=== PATIENT | female | born 1950 | race Caucasian/White ===

== ENCOUNTER → 2017-11-24 18:01 | Outpatient (CLI) | payer MEDICARE, OTHER ==
[2013-01-15 13:14] VITALS: BMI 28.2
== END | disposition home or self-care (01) ==
LOC: D.MAMMO 10-04 08:00
DX: Z12.31 Encounter for screening mammogram for malignant neoplasm of breast (principal)

== ENCOUNTER → 2019-01-23 16:53 | Outpatient (CLI) | payer MEDICARE, OTHER ==
[2013-01-15 13:14] VITALS: BMI 28.2
== END | disposition home or self-care (01) ==
LOC: D.MAMMO 01-02 16:00
PROVIDERS: ATTEND Family Medicine
DX: Z12.31 Encounter for screening mammogram for malignant neoplasm of breast (principal)

== ENCOUNTER 2021-01-22 11:30 | Outpatient (CLI) | payer MEDICARE, OTHER ==
[2013-01-15 13:14] VITALS: BMI 28.2
== END 2021-01-22 23:59 | disposition home or self-care (01) ==
LOC: D.MAMMO 11:30
PROVIDERS: ATTEND Nurse Practitioner
DX: Z12.31 Encounter for screening mammogram for malignant neoplasm of breast (principal)

== ENCOUNTER → 2021-02-16 10:26 | Outpatient (CLI) | payer MEDICARE, OTHER ==
[2013-01-15 13:14] VITALS: BMI 28.2
== END | disposition home or self-care (01) ==
LOC: D.HCCARDIO 10:00
PROVIDERS: ATTEND Internal Medicine Cardiovascular Disease
DX: I48.0 Paroxysmal atrial fibrillation (principal)

== ENCOUNTER 2021-02-24 06:36 | Day surgery (SDC) | payer MEDICARE, OTHER ==
[~2021-02-24] VITALS: Ht 170.2 cm; Wt 73.3 kg
--- NOTE | ~2021-02-24 | HEMODYNAMI ---
PATIENT:NANCY COLON MEDICAL RECORD: [id number] : 46 LOCATION:D.CAT ADMISSION DATE: 02/24/21 Generatedon::47 Patient name: NANCY COLON Patient #: [id number] SSN: [id number] : 1950 Date of study: 02/24/2021 Page: Of Hemodynamic Procedure Report Patient Data Patient Demographics Procedure consent was obtained First Name: NANCY Gender: Female Last Name: DARLENE : 1950 Middle Initial: CARL Age: 70 year(s) Patient #: [id number] Race: Unknown SSN: [id number] Additional ID: [id number] Contact details [address]: [address] [place] [address] State: [place] City: [place] Zip code: [address] Past Medical History Performed procedures and imaging results Date Procedure Procedure Results Comments Stress testing Positive->Intermediate with SPECT MPI risk Allergies Allergen Reaction Date Comments Reported Other allergy 02/24/2021 VALIUM Admission Admission Data Admission Date: 02/24/2021 Admission Time: 6:36 Insurance Payor: Medicare [facility] #: [id number] Height (in.): 66.93 BSA: 1.84 (m2) Height (cm.): 170 BMI: 25.26 (kg/m2) Weight (lbs.): 160.94 Weight (kg.): 73 Lab Results Lab Result Date: 02/24/2021 Lab Result Time: 0:00 Biochemistry Name Units Result Min Max BUN mg/dl 20 --(----)*- 7 18 Creatinine mg/dl 0.8 --(-*--)-- 0.6 1.3 eGFR ml/min 75 *-(----)-- 90 120 NONAFRICAN CBC Name Units Result Min Max Hemoglobin g/dl 14.3 --(*---)-- 13.5 17.5 Procedure Procedure Types Cath Procedure Diagnostic Procedure LHC LHC w/Coronaries FFR/IVUS FFR Initial FFR Additional Sedation Charges Moderate Sedation 40-54 minutes PCI Procedure Hemochron ACT Test Procedure Description Procedure Date Procedure Date: 02/24/2021 Procedure Start Time: 8:05 Procedure End Time: 8:42 Procedure Staff Name Function Shad Olsen MD Performing Physician Lo Dodd RT Monitor Mellshar Rosa RT Scrub David Lal RN Nurse Roman Clay RN Nurse Procedure Data Cath Procedure Fluoroscopy Diagnostic fluoroscopy Total fluoroscopy Time: 9.3 time: 9.3 min min Diagnostic fluoroscopy Total fluoroscopy dose: 680 dose: 680 mGy mGy Contrast Material Contrast Material Type Amount (ml) Isovue 300 148 Entry Location Entry Primary Successful Side Size Upsize Upsize Entry Closure Succes sful Closure Location (Fr) 1 (Fr) 2 (Fr) Remarks Device Remarks Femoral Right 5 Fr Exoseal artery Estimated blood loss: 10 ml Diagnostic catheters Device Type Used For End Catheter Placement MULTIPACK 3DRC 5Fr Procedure catheter MULTIPACK JL 4.0 5Fr Procedure catheter MULTIPACK Pigtail 5 Fr Ventriculography catheter Procedure Complications No complications Procedure Medications Medication Administration Route Dosage 0.9% NaCl I.V. 100 ml/hr Oxygen etCO2 Nasal cannula 2 l/min Heparin Flush Bag added to field 2 bags (1000units/500ml NS) Lidocaine 2% added to field 20 Fentanyl I.V. 50 mcg Versed I.V. 1 mg Versed I.V. 0.5 mg Heparin Bolus I.V. 4000 units Hemodynamics Rest BSA: 1.84 (m2) HGB: 14.3 (g/dl) O2 Consumption: Estimated: 157.52 (ml/min) O2 Co nsumption indexed: Estimated:85.61 (ml/min/m) Heart Rate: 54 (bpm) Pressure Samples Time Site Value (mmHg) Purpose Heart Use Rate(bpm) 8:15 LV 120/-2,14 Snapshot 56 Gradients Valve Time Site Site Mean SEP/DFP Peak To Heart Use 1 2 (mmHg) (sec/min) Peak Rate (mmHg) (bpm) Aortic 8:15 LV AO 70 Snapshots Pre Cath Intra NCS Post Cath Vital Signs Time Heart Resp SPO2 etCO2 NIBP (mmHg) Rhythm Pain Sedation Rate (ipm) (%) (mmHg) Status Level (bpm) 7:52:07 53 16 100 29.9 165/71(128) SB 0 (11) 10(A) , No pain 7:57:19 57 16 100 19.4 158/69(129) SB 0 (11) 9(A) , No pain 8:02:34 51 14 99 31.4 131/61(100) SB 0 (11) 9(A) , No pain 8:06:54 51 14 99 0 124/55(90) SB 0 (11) 9(A) , No pain 8:11:12 51 14 99 35.1 121/53(91) SB 0 (11) 9(A) , No pain 8:15:30 76 13 99 29.1 115/50(98) SB 0 (11) 9(A) , No pain 8:20:29 54 15 99 37.4 117/56(103) SB 0 (11) 9(A) , No pain 8:24:43 54 16 100 33.7 111/57(92) SB 0 (11) 9(A) , No pain 8:28:58 50 15 99 32.9 110/50(91) SB 0 (11) 9(A) , No pain 8:34:13 50 18 100 30.7 108/53(92) SB 0 (11) 9(A) , No pain 8:39:12 47 18 99 29.2 127/57(100) SB 0 (11) 10(A) , No pain Medications Time Medication Route Dose Verified Delivered Reason Notes Effectiveness by by 7:52:23 0.9% NaCl I.V. 100 Shad Orman used for ml/hr Raúl Clay RN procedure 7:52:32 Oxygen etCO2 2 Shad Roman used for Nasal l/min Raúl Clay RN procedure cannula 7:52:43 Heparin Flush added 2 Shad Shad used for Bag to bags Raúl Olsen MD procedure (1000units/500ml field NS) 7:52:53 Lidocaine 2% added 20ml Shad Shad for local to vial Raúl Olsen MD anesthetic field 7:55:10 Fentanyl I.V. 50 Shad Roman for sedation mcg Raúl Clay RN 7:55:15 Versed I.V. 1 mg Shad Roman for sedation Raúl Clay RN 8:07:49 Versed I.V. 0.5 Shad Roman for sedation mg Raúl Clay RN 8:20:43 Heparin Bolus I.V. 4000 Shad Roman for units Raúl Clay RN anticoagulation Procedure Log Time Note 7:31:01 Informed consent obtained and on chart 7:32:55 Procedure Status Elective Heart Cath (OP). 7:32:56 Time tracking: Regular hours (M-F 7:00 - 5:00) 7:33:03 Plan of Care:Hemodynamics will remain stable., Cardiac rhythm will remain stable., Comfort level will be maintained., Respiratory function will remain adequate., Patient/ family verbilizes understanding of procedure., Procedure tolerated without complication., Recovers from procedure without complications.. 7:36:44 Patient Weight : 160.94 lbs 7:36:46 Patient Height : 66.93 inches 7:36:55 David Lal RN sent for patient. Start room use. 7:38:06 H&P Date Dictated: 02/10/2021 Within 30 days and on chart., H&P Addendum completed by physician on day of procedure. (MUST COMPLETE FOR ALL OUTPATIENTS). 7:38:22 Patient allergic to Other allergyVALIUM 7:40:03 Stress Test: yes; abnormal ANTERIOR AND APICAL 7:42:30 Patient received from Pre/Post Procedure Room to CCL 1 Alert and oriented. Tansferred to table in Supine position. 7:42:31 Warm blankets applied, and mane hugger turned on for patient comfort. 7:42:32 Correct patient and procedure confirmed by team. 7:42:32 ECG and BP/O2 sat monitors applied to patient. 7:50:00 Baseline sample Acquired. 7:50:00 Vital chart was started 7:50:07 Rhythm: sinus rhythm 7:50:10 Full Disclosure recording started 7:50:14 Family in patients room. 7:50:17 Patient NPO since Midnight. 7:50:21 Is the patient allergic to Iodine/contrast media? No. 7:50:22 Was the patient premedicated? Yes 7:50:24 Is patient on blood thinner?No 7:50:25 Patient diabetic? Yes. 7:50:28 If diabetic: On Metformin? Yes 7:50:34 If on Metformin: Last Dose? 02/22/2021 7:50:46 Snore? Yes 7:50:47 Sleep apnea? No 7:50:53 Patient pain scale 0/10 ?. 7:51:00 IV patent on arrival in left forearm with 0.9% NaCl at [facility]. 7:52:23 0.9% NaCl 100 ml/hr I.V. was administered by Roman Clay RN; used for procedure; Verbal order read back and verified. 7:52:32 Oxygen 2 l/min etCO2 Nasal cannula was administered by Roman Clay RN; used for procedure; Verbal order read back and verified. 7:52:43 Heparin Flush Bag (1000units/500ml NS) 2 bags added to field was administered by Shad Olsen MD; used for procedure; Verbal order read back and verified. 7:52:53 Lidocaine 2% 20ml vial added to field was administered by Shad Olsen MD; for local anesthetic; Verbal order read back and verified. 7:54:19 Lab Result : Creatinine 0.8 mg/dl 7:54:19 Lab Result : BUN 20 mg/dl 7:54:19 Lab Result : Hemoglobin 14.3 g/dl 7:54:19 Lab Result : eGFR NONAFRICAN 75 ml/min 7:54:23 Lab results completed and on chart. 7:54:29 Right groin area was prepped with chlora-prep and draped in sterile fashion 7:54:46 Alarms reviewed by REstephania N. 7:54:47 Sharps counted by scrub and verified by R.N. 7:54:49 Physician arrived 7:54:50 --------ALL STOP TIME OUT------ 7:54:51 Final Timeout: patient, procedure, and site verified with staff and physician. All members of the team are in agreement. 7:55:04 Right groin site verified by team. 7:55:08 Fire Safety Assessment: A--An alcohol-based skin anteseptic being used preoperatively., C--Open oxygen or nitrous oxide is being used., D--An ESU, laser, or fiber-optic light is being used. 7:55:10 Fentanyl 50 mcg I.V. was administered by Roman Clay RN; for sedation; Verbal order read back and verified. 7:55:15 Versed 1 mg I.V. was administered by Roman Clay RN; for sedation; Verbal order read back and verified. 7:55:18 Physical assessment completed. ASA score P 3 - A patient with severe systemic disease as per Shad Olsen MD. 7:55:21 2) 60-89 Mildly reduced kidney function, and other findings (as for stage 1) point to kidney disease. 7:55:49 Maximum allowable contrast dose (3.7 X eGFR X 0.75)208 ml. 7:55:54 Sedation plan: IV Moderate Sedation Medication:Versed, Fentanyl 7:55:59 Use device set Femoral Dx 7:59:41 Insurance Payor : Medicare 8:02:26 Zero performed for pressure channel P1 8:05:05 Procedure started. 8:05:44 Local anesthetic to right femoral artery with Lidocaine 2% by Sahd Olsen MD.INITIAL ACCESS ONLY 8:07:49 Versed 0.5 mg I.V. was administered by Roman Clay RN; for sedation; Verbal order read back and verified. 8:08:03 A 5 Fr sheath was inserted into the Right Femoral artery 8:08:42 ACIST Syringe (32929) opened to sterile field. 8:08:42 Bag Decanter (2002S) opened to sterile field. 8:08:42 Medline Cath Pack ([id number]) opened to sterile field. 8:08:44 ACIST Hand Control (78261) opened to sterile field. 8:08:44 ACIST Manifold (93936) opened to sterile field. 8:08:46 DIAGNOSTIC Multipack 5Fr catheter set (MI2472) opened to sterile field. 8:08:47 Tegaderm 4 x 4 (1626W) opened to sterile field. 8:08:49 SHEATH 5FR [place] (SIV303) opened to sterile field. 8:08:49 EMERALD Guide Wire (208-220) opened to sterile field. 8:09:52 A MULTIPACK 3DRC 5Fr catheter was advanced over the wire and used for Procedure. 8:09:55 RCA angiography performed. 8:10:30 Catheter removed. 8:10:50 A MULTIPACK JL 4.0 5Fr catheter was advanced over the wire and used for Procedure. 8:11:41 LCA angiography performed. 8:14:10 Catheter removed. 8:14:21 A MULTIPACK Pigtail 5 Fr catheter was advanced over the wire and used for Ventriculography. 8:14:29 LV gram done using SCOTT 8:16:10 EF : 60 % 8:16:41 Aortic Root visualized 8:18:27 Catheter removed. 8:20:43 Heparin Bolus 4000 units I.V. was administered by Roman Clay RN; for anticoagulation; Verbal order read back and verified. 8:21:07 5 Fr ebu3.5 guide catheter was inserted over the wire 8:21:15 OMNI wire advanced. 8:21:36 GUIDE 5FR EBU 3.5 catheter ([id number]) opened to sterile field. 8:21:36 TUBING High Pressure Extension Tubing (Raúl) (MG7322R) opened to sterile field. 8:21:37 INFLATOR Merit BasixCompak (WQ7394) opened to sterile field. 8:21:39 Guffey OmniWire (73649) opened to sterile field. 8:21:54 Pressure wire advanced. 8:27:52 Zero performed for pressure channel P1 8:37:05 EXOSEAL 5Fr (EX500) opened to sterile field. 8:37:13 Catheter removed. 8:37:25 Sheath removed intact; hemostasis achieved with Exoseal to the Right Femoral artery. 8:37:34 Procedure ended.(Physican Out) 8:38:15 Fluoroscopy time 09.30 minutes. 8:38:19 Fluoroscopy dose: 680 mGy 8:38:19 Flurop Dose total: 680 8:38:24 Dose Area Product 41362 mGy/cm. 8:38:30 Contrast amount:Isovue 300 148ml. 8:38:32 Maximum allowable dose exceeded? No. 8:38:38 Insertion/operative site no bleeding no hematoma. 8:38:43 Post-op/insertion site Right Femoral artery dressed using a 4 x 4 and Tegaderm. 8:38:45 Post Procedure Pulses reassessed and unchanged 8:38:55 Post-procedure physical assessment completed. ASA score P 3 - A patient with severe systemic disease as per Shad Olsen MD. 8:38:58 Post procedure rhythm: unchanged. 8:39:01 Estimated blood loss: 10 ml 8:39:08 Post procedure instruction explained to patient.Patient verbalizes understanding. 8:40:43 Procedure type changed to Cath procedure, Diagnostic procedure, LHC, LHC w/Coronaries, FFR/IVUS, FFR Initial, FFR Additional, Sedation Charges, Moderate Sedation 40-54 minutes, PCI procedure, Hemochron ACT Test 8:40:46 Procedure and supply charges have been captured, reviewed, submitted and are correct. 8:42:09 Procedure Complication : No complications 8:42:11 Vital chart was stopped 8:42:17 [facility] Findings: MVD- CABG consult 8:42:19 Operative report dictated upon procedure completion. 8:42:20 See physician's report for complete and final results. 8:42:23 Report given to Pre/Post Procedure Room. 8:42:27 Patient transfered to Pre/Post Procedure Room with Stretcher. 8:42:30 Procedure ended. 8:42:30 Full Disclosure recording stopped 8:42:35 End room use (Document Last) 8:42:45 ACT drawn and resulted at 143 seconds. (normal therapeutic range 180-240 seconds). 8:43:07 End room use (Document Last) 8:44:44 End room use (Document Last) Device Usage Item Name Manufacture Quantity Catalog Hospital Part Current Minimal L ot# / Number Charge Number Stock Stock Serial# Code ACIST Acist 1 57394 561612 655522 174106 20 Syringe Medical (77946) Systems Inc Bag Microtek 1 2001S 143835 02405 657287 5 Decanter Medical Inc. () Medline Medline 1 [id number] 940913 39187 792037 5 Cath Pack ([id number]) ACIST Hand Acist 1 41208 453598 052044 984150 5 Control Medical (03203) Systems Inc ACIST Acist 1 01504 630299 406403 950951 5 Manifold Medical (93898) Systems Inc DIAGNOSTIC Cardinal 1 DN5473 603060 90794 181006 30 Multipack Health 5Fr catheter set (DI7051) Tegaderm 4 3M 1 1626W 878269 783033 489145 5 x 4 (1626W) SHEATH 5FR Terumo 1 XDX867 643189 591410 435259 5 [place] (BAJ553) EMERALD Cardinal 1 502-455 666022 312875 215930 5 Guide Wire Health (502-455) MULTIPACK Cardinal 1 710536 5 3DRC 5Fr Health catheter MULTIPACK Cardinal 1 454687 5 JL 4.0 5Fr Health catheter MULTIPACK Cardinal 1 607808 5 Pigtail 5 Health Fr catheter GUIDE 5FR Medtronic 1 [id number] 014827 736321 362964 1 EBU 3.5 catheter (VJ9OPF00) TUBING High Merit 1 [id number] 471870 77599 325958 10 Pressure Medical Extension Tubing (Raúl) (RF5153I) INFLATOR Merit 1 YF9171 682870 622953 903885 15 Merit Medical BasixCompak (DU5350) Guffey Guffey 1 7130983 850076 82121 9938 5 OmniWire (44499) EXOSEAL 5Fr Cardinal 1 EX500 572731 379843 423886 10 (EX500) Health Signature Audit [place] Stage Time Signature Unsigned Intra-Procedure 02/24/2021 Lo Dodd 8:43:07 AM RT(R) Intra-Procedure 02/24/2021 David 8:44:44 AM Hali PASTOR Intra-Procedure 02/24/2021 Shad Olsen MD 8:47:41 AM [facility] [address] [place] [address]
[2021-02-24] MEDS ORDERED: CARDIZEM60 MG PO (06:54)
[2021-02-24] MEDS ORDERED: LISINOPRIL5 MG PO (06:55)
[2021-02-24] MEDS ORDERED: ZETIA10 MG PO (06:55)
[2021-02-24] MEDS ORDERED: GLUCOPHAGE500 MG PO (06:55)
[2021-02-24] MEDS ORDERED: BAYER CHEWABLE81 MG PO (06:56)
[2021-02-24] MEDS ORDERED: PRAVASTATIN SOD10 MG PO (06:56)
[2021-02-24 07:18] VITALS: BP 149/58; Ht 170.2 cm; Wt 73.3 kg
[2021-02-24 07:22] LABS: BASOPHILS 0.8 % (0-2); EOSINOPHILS 3.5 % (0-7); HEMATOCRIT 42.5 % (36.0-48.0); HEMOGLOBIN 14.3 g/dL (12-16); LYMPHOCYTES 34.1 % (15-50); MCH 28.5 pg (26.0-34.0); MCHC 33.7 g/dL (31.0-37.0); MCV 84.5 fL (80.0-100.0); MEAN PLATELET VOLUME 7.8 fL (7.4-10.4); MONOCYTES 7.5 % (2-11); NEUTROPHILS 54.1 % (40-80); PLATELET COUNT 270 10x3/uL (130-400); RBC 5.03 10x6/uL (4.00-5.40); RDW 13.9 % (11.5-14.5)
[2021-02-24 07:42] LABS: ANION GAP 14.8 mmol/L (8-16); CALCIUM 9.1 mg/dL (8.5-10.1); CARBON DIOXIDE 26.1 mmol/L (21.0-32.0); CHOL - HDL RATIO 3.5 ratio (2.3-4.1); CREATININE - SERUM 0.8 mg/dL (0.6-1.3); LDL-HDL RATIO 2.2 ratio (1.5-3.5); POTASSIUM - SERUM 3.9 mmol/L (3.5-5.1)
--- NOTE | 2021-02-24 08:50 | NUR ---
PT ARRIVED BY STRETCHER. PLACED ON MONITORS. ASSESSMENT COMPLETED. VSS AT THIS TIME. CALL LIGHT WITHIN REACH.
--- NOTE | 2021-02-24 09:05 | NUR ---
RIGHT GROIN DRESSING C/D/I. NO S/S OF HEMATOMA NOTED. CALL LIGHT WITHIN REACH. PT'S GRANDSON AT BEDSIDE. RIGHT PEDAL PULSE PALPABLE. PT RESTING COMFORTABLY.
--- NOTE | 2021-02-24 09:35 | NUR ---
RIGHT GROIN DRESSING C/D/I. NO S/S OF HEMATOMA NOTED. RIGHT PEDAL PULSE PALPABLE. CALL LIGHT WITHIN REACH. FAMILY AT BEDSIDE. PT RESTING COMFORTABLY.
--- NOTE | 2021-02-24 09:48 | NUR ---
RIGHT GROIN DRESSING C/D/I. NO S/S OF HEMATOMA NOTED. VSS AT THIS TIME. CALL LIGHT WITHIN REACH. MORTGAGE LOAN COORDINATOR AT BEDSIDE. PT RESTING COMFORTABLY AT THIS TIME.
--- NOTE | 2021-02-24 10:30 | NUR ---
RIGHT GROIN DRESSING C/D/I. NO S/S OF HEMATOMA NOTED. HEAD OF BED INC TO 30 DEGREES. TOLERATED WELL. SET UP WITH SANDWICH TRAY AND DRINK. DENIES NAUSEA/PAIN. FAMILY AT BEDSIDE.
--- NOTE | 2021-02-24 11:01 | NUR ---
RIGHT GROIN DRESSING C/D/I. NO S/S OF HEMATOMA NOTED. PIV D/C'D WITH CATH TIP INTACT. TOLERATED WELL. PT INSTRUCTED TO GET UP AND DRESSED AT THIS TIME. NO ASSISTANCE NEEDED. CALL LIGHT LEFT WITHIN REACH.
--- NOTE | 2021-02-24 11:05 | NUR ---
DISCUSSED DISCHARGE INSTRUCTIONS WITH PT. SHE VOICED UNDERSTANDING. PT AMBULATED TO RESTROOM AND VOIDED WITHOUT DIFFICULTY. STEADY GAIT NOTED.
--- NOTE | 2021-02-24 11:20 | NUR ---
RIGHT GROIN DRESSING C/D/I .NO S/S OF HEMATOMA NOTED. PT TAKEN OUT TO VEHICLE BY WHEELCHAIR. NO S/S OF DISTRESS NOTED. ALL BELONGINGS AND PAPERWORK IN HAND.
== END 2021-02-24 11:20 | disposition home or self-care (01) ==
LOC: D.CATH 06:36
PROVIDERS: ATTEND Internal Medicine Cardiovascular Disease
DX: I20.8 Other forms of angina pectoris (principal); R94.39 Abnormal result of other cardiovascular function study; I48.91 Unspecified atrial fibrillation; R00.2 Palpitations; R53.83 Other fatigue; R06.09 Other forms of dyspnea

== ENCOUNTER → 2021-03-20 08:00 | Outpatient (CLI) | payer MEDICARE, OTHER ==
[~2021-03-20 08:00] MED LIST: ASCORBIC ACID500 MG PO; BAYER CHEWABLE81 MG PO; CARDIZEM60 MG PO; COLACE100 MG PO; COMBIVENT RESPIM4 GM INH; GLUCOPHAGE500 MG PO; LISINOPRIL5 MG PO; LOPRESSOR25 MG PO; LOW DOSE ASPIRI81 M1 PO; PERCOCET 5-3251 TAB PO; PRAVASTATIN SOD10 MG PO; VITAMIN D325 MC1 PO; ZETIA10 MG PO
[2021-03-20 12:05] LABS: BASOPHILS 0.6 % (0-2); EOSINOPHILS 1.5 % (0-7); HEMATOCRIT 41.9 % (36.0-48.0); HEMOGLOBIN 13.8 g/dL (12-16); LYMPHOCYTES 34.2 % (15-50); MCH 28.4 pg (26.0-34.0); MCV 86.1 fL (80.0-100.0); MONOCYTES 6.2 % (2-11); NEUTROPHILS 57.5 % (40-80); PLATELET COUNT 295 10x3/uL (130-400); RBC 4.87 10x6/uL (4.00-5.40); RDW 13.8 % (11.5-14.5); WBC 8.3 10x3/uL (4.8-10.8)
[2021-03-20 12:10] LABS: BACTERIA FEW HPF (<MOD); BILIRUBIN NEGATIVE (NEGATIVE); KETONE NEGATIVE mg/dL (< 1+); NITRITE NEGATIVE (NEGATIVE); SQUAMOUS EPITHELIAL <1 HPF (0-4); UROBILINOGEN NORMAL mg/dL (< 2); WHITE CELLS - URINE 1 HPF (0-4)
[2021-03-20 12:17] LABS: INR 1.12 (0.85-1.17); PROTIME 13.4 SECONDS (11.6-15.0)
[2021-03-20 12:36] LABS: ALBUMIN 3.8 g/dL (3.4-5.0); ALKALINE PHOSPHATASE 75 U/L (30-120); ALT (SGPT) 18 U/L (10-68); BILIRUBIN - TOTAL 0.41 mg/dL (0.2-1.3); CALC OSMOLALITY 285 mosm/kg (275-300); CALCIUM 8.6 mg/dL (8.5-10.1); CARBON DIOXIDE 29.4 mmol/L (21.0-32.0); CHLORIDE - SERUM 107 mmol/L (98-107); CHOLESTEROL, TOTAL 155 mg/dL (0-200); CREATININE - SERUM 0.6 mg/dL (0.6-1.3); GLUCOSE 112 mg/dL (74-106); PHOSPHOROUS 3.5 mg/dL (2.5-4.9); POTASSIUM - SERUM 4.4 mmol/L (3.5-5.1); PRO BNP 425 pg/mL (0-125); PROTEIN - SERUM 7.1 g/dL (6.4-8.2); SODIUM 143 mmol/L (136-145); T4 THYROXIN - FREE 1.06 ng/dL (0.76-1.46); THYROID STIMULATING HORMONE 0.45 uIU/mL (0.36-3.74); UREA NITROGEN 13 mg/dL (7-18); URIC ACID 5.7 mg/dL (2.6-7.2); eGFR NON AFRICAN AMERICAN > 90 mL/min (90-120)
[2021-03-28 07:56] VITALS: BMI 26.9
== END | disposition home or self-care (01) ==
LOC: D.PAN 08:00 → D.SDCHOLD 11:00 → EDSTATUS 03-24 11:00
PROVIDERS: ATTEND Thoracic Surgery (Cardiothoracic Vascular Surgery)
DX: I25.10 Atherosclerotic heart disease of native coronary artery without angina pectoris (principal); J94.8 Other specified pleural conditions; J98.11 Atelectasis; I10 Essential (primary) hypertension; E78.5 Hyperlipidemia, unspecified; E11.9 Type 2 diabetes mellitus without complications; Z79.84 Long term (current) use of oral hypoglycemic drugs; R06.89 Other abnormalities of breathing; Z87.891 Personal history of nicotine dependence; J44.9 Chronic obstructive pulmonary disease, unspecified

== ENCOUNTER 2021-03-26 09:16 | Inpatient (IN) | payer MEDICARE, OTHER ==
[~2021-03-26] VITALS: Ht 170.2 cm; Wt 77.0 kg
[~2021-03-26 09:16] MED LIST changes: -COLACE100 MG PO; -COMBIVENT RESPIM4 GM INH; -LOPRESSOR25 MG PO; -LOW DOSE ASPIRI81 M1 PO; -PERCOCET 5-3251 TAB PO
[2021-03-27] VITALS (44 sets, daily range): BP systolic 98–138; BP diastolic 43–71; BMI 25.6; BMI 12.2
--- NOTE | 2021-03-27 08:03 | NUR ---
CVL AND ARTERIAL LINE PLACED BY ANESTHESIA, SCD AND STOCKING PLACED POST OP ON LEFT LEG, RIGHT LEG WRAPPED, CHARMAINE.
--- NOTE | 2021-03-27 13:23 | NUR ---
BOTH LEGS WRAPPED DUE TO BOTH BEING OPERATED ON, CHARMAINE.
[2021-03-27 14:41] LABS: APTT 30.5 SECONDS (22.8-39.4); INR 1.38 (0.85-1.17); PROTIME 15.7 SECONDS (11.6-15.0)
[2021-03-27 14:42] LABS: BASOPHILS 0.2 % (0-2); EOSINOPHILS 0.3 % (0-7); HEMATOCRIT 36.5 % (36.0-48.0); HEMOGLOBIN 11.8 g/dL (12-16); LYMPHOCYTES 9.8 % (15-50); MCH 28.1 pg (26.0-34.0); MCHC 32.5 g/dL (31.0-37.0); MCV 86.5 fL (80.0-100.0); MEAN PLATELET VOLUME 8.3 fL (7.4-10.4); MONOCYTES 7.6 % (2-11); NEUTROPHILS 82.1 % (40-80); RBC 4.22 10x6/uL (4.00-5.40); RDW 13.7 % (11.5-14.5)
[2021-03-27 14:48] LABS: PLATELET COUNT 220 10x3/uL (130-400)
[2021-03-27 15:22] LABS: ALBUMIN 3.1 g/dL (3.4-5.0); ALKALINE PHOSPHATASE 53 U/L (30-120); ALT (SGPT) 14 U/L (10-68); CALC OSMOLALITY 295 mosm/kg (275-300); CALCIUM 7.8 mg/dL (8.5-10.1); CARBON DIOXIDE 24.8 mmol/L (21.0-32.0); CHLORIDE - SERUM 113 mmol/L (98-107); CREATININE - SERUM 0.7 mg/dL (0.6-1.3); POTASSIUM - SERUM 4.2 mmol/L (3.5-5.1); PROTEIN - SERUM 5.2 g/dL (6.4-8.2); SODIUM 145 mmol/L (136-145); UREA NITROGEN 17 mg/dL (7-18); eGFR NON AFRICAN AMERICAN 87 mL/min (90-120)
[2021-03-27 15:26] LABS: GLUCOSE 195 mg/dL (74-106)
--- NOTE | 2021-03-27 16:54 | NUR ---
1330-RECIEVED FROM OR ACCOMPANIED BY TEAM-PLACED TO VENTILATOR-SEE RT-SR ON JJYRZKH-DXJM-867-INSULIN STARTED AT 2UNITS/H-ABP-NTG AT 30MCG-VERBAL PARAMETER LEFT <930YBG-IGL-170/78-CLEVIPREX STARTED AT 3MG-ABG DRAWN AND SHOWN TO DR ORDOÑEZ-ORDER RECIEVED AND NOTED CACL I GRAM IV AND K 20MEQ RIDER OVER 1 HR STARTED PORT CXR DONE FAMILY BROUGHT TO BEDSIDE 1530-DR GOMEZ AT BEDSIDE-STATUS REPORT GIVEN
--- NOTE | 2021-03-27 17:55 | NUR ---
ABG REPEATED -K 3.5-NOTED BIJEMINAL PAC FOLLOWED BY IRREGULAR MAG LEVEL DRAWN-K 3.5-REPLACEMENT STARTED DR ORDOÑEZ MADE AWARE
--- NOTE | 2021-03-27 18:37 | NUR ---
DAUGHTER AT BEDSIDE
[2021-03-28] VITALS (59 sets, daily range): BP systolic 93–136; BP diastolic 40–67; Ht 170.2 cm; Wt 77.0 kg
--- NOTE | 2021-03-28 02:09 | NUR ---
FLIPPED TO CPAP SETTING 30% FIO2, 5/10, RATE OF 10 PER RT.
--- NOTE | 2021-03-28 03:25 | NUR ---
G'S DRAWN AND REVIEWED.
--- NOTE | 2021-03-28 03:39 | NUR ---
NIF AND VC ARE NOT WNL, REMAINS ON CPAP 30%
--- NOTE | 2021-03-28 04:30 | NUR ---
K+ OF 3.2 ON ABG'S TREATED WITH 10 MEQ KCL PER SLIDING SCALE.
--- NOTE | 2021-03-28 04:35 | NUR ---
ATTEMPTED NIF AND VC AGAIN, NOT EXTUBATABLE AT THIS TIME. REMAINS ON CPAP SETTING, 30 FIO2
[2021-03-28 05:41] LABS: HEMATOCRIT 34.4 % (36.0-48.0); HEMOGLOBIN 11.6 g/dL (12-16); MCH 28.6 pg (26.0-34.0); MCHC 33.7 g/dL (31.0-37.0); MCV 84.8 fL (80.0-100.0); MEAN PLATELET VOLUME 8.3 fL (7.4-10.4); RBC 4.06 10x6/uL (4.00-5.40); RDW 13.8 % (11.5-14.5); WBC 19.2 10x3/uL (4.8-10.8)
[2021-03-28 05:50] LABS: ALBUMIN 2.9 g/dL (3.4-5.0); ALKALINE PHOSPHATASE 46 U/L (30-120); BILIRUBIN - TOTAL 0.21 mg/dL (0.2-1.3); CALCIUM 8.1 mg/dL (8.5-10.1); CARBON DIOXIDE 24.7 mmol/L (21.0-32.0); CHLORIDE - SERUM 115 mmol/L (98-107); CREATININE - SERUM 0.6 mg/dL (0.6-1.3); POTASSIUM - SERUM 4.2 mmol/L (3.5-5.1); PROTEIN - SERUM 5.4 g/dL (6.4-8.2); SODIUM 148 mmol/L (136-145); UREA NITROGEN 15 mg/dL (7-18); eGFR NON AFRICAN AMERICAN > 90 mL/min (90-120)
[2021-03-28 05:52] LABS: ALT (SGPT) 25 U/L (10-68); CALC OSMOLALITY 295 mosm/kg (275-300); GLUCOSE 116 mg/dL (74-106)
--- NOTE | 2021-03-28 10:58 | OP ---
PATIENT NAME: NANCY COLON MEDICAL RECORD: [id number] :46 LOCATION:D.CVI D.CV04 ADMISSION DATE:03/27/21 SURGEON: ESTELLE ORDOÑEZ MD DATE OF OPERATION: 03/27/2021 SURGEON: Estelle Ordoñez MD PROCEDURES PERFORMED: 1. Coronary artery bypass graft times 4 (left internal mammary artery to LAD, reverse saphenous vein graft from aorta to diagonal, aorta to obtuse marginal, aorta to posterior descending artery). 2. Endoscopic saphenous vein harvest both lower extremities. 3. Bilateral pulmonary vein radiofrequency ablation. 4. Application of a left atrial appendage occlusion device. 5. Lysis of dense intrapleural adhesions, left upper lobe. PREOPERATIVE DIAGNOSIS: Coronary artery disease and atrial fibrillation. POSTOPERATIVE DIAGNOSIS: Coronary artery disease and atrial fibrillation plus bullous emphysema, COPD, intrapleural adhesions, and varicose veins. ANESTHESIA: Endotracheal anesthesia. SPECIMENS: None. COMPLICATIONS: None. CONDITION: Stable. DISPOSITION: CV-ICU. OPERATIVE FINDINGS: 1. Transesophageal echocardiography revealed no aortic stenosis and no aortic insufficiency. 2. Greater saphenous vein from the right lower extremity was varicose not usable and the left greater saphenous vein was in much better caliber and quality. There was not enough vein for the more lateral obtuse marginal, but this filled briskly after injecting the first obtuse marginal vein graft. 3. Bilateral pulmonary vein radiofrequency ablation utilizing the AtriCure device. 4. Application of a 45-mm left atrial appendage occlusion device. 5. Dense adhesions to the lingula along the mediastinal pleura and at the apex were taken down as much as possible to the apex and the entire lingula freed laterally to allow dissection of the internal mammary and passage of the internal mammary through the pericardium. Lungs were significantly hyperinflated consistent with chronic smoking and chronic obstructive pulmonary disease. 6. LAD 1.5 mm with plaque palpable at the bifurcation with the diagonal. 7. First diagonal 1.5 mm with severe disease. 8. First obtuse marginal 1.5 mm with proximal plaque. 9. Posterior descending aorta 1.5 mm with severe disease. OPERATIVE INDICATION: Coronary artery disease and atrial fibrillation. DESCRIPTION OF PROCEDURE: The patient was brought to the operating suite. OPERATIVE REPORT [id number] NANCY COLON General anesthesia was obtained. The patient was prepped and draped. Greater saphenous vein harvest from the right lower extremity was varicose, harvested endoscopically from the left lower extremity. Side branches were tied. Thin sites were oversewn. Both legs were irrigated and closed in 2 layers. Median sternotomy incision was made. Subcutaneous tissue divided with electrocautery. Sternum was divided with a saw. Left hemisternum was elevated. Left pleural cavity was entered, but dense adhesions were noted. They were taken down sharply, freeing the upper lobe. The internal mammary artery and veins were then taken down as a pedicle graft. Sternal retractor was placed. Pericardium was opened. Heparin was given. Aorta was cannulated. Dual stage venous cannula was inserted. There was a small amount of plaque to the right side of the aorta at the innominate, but well away from the cannulation site. The patient was placed on cardiopulmonary bypass after activating clotting time was appropriately elevated. The internal mammary was clipped distally and made ready for anastomosis. Sites for distal anastomosis was selected, bilateral pulmonary vein radiofrequency ablation was performed. Left atrial appendage occlusion device was placed. The patient was cooled. Antegrade cardioplegic cannula was inserted. Crossclamp was placed. Cardioplegia was given antegrade and this was repeated at 15- to 20-minute intervals including down the completed vein grafts. Distal anastomoses were performed in standard technique. Proximal anastomosis with single cross-clamp technique. The aortic root was de-aired. Flow was restored. Vein grafts de-aired. Proximal and distal anastomotic sites were checked for bleeding. Protamine was given. The patient decannulated. Cannulation sites oversewn, grafts lay appropriately. Hemostasis was ensured. The left chest was evacuated and irrigated. Drains were placed in the mediastinum, left pleural cavity, and internal mammary harvest site was inspected for bleeding. Sternum was closed with wires. Fascia was closed. Subcutaneous tissues were closed. Skin was closed. Dermabond was placed. The needle and sponge counts were reported as correct and the patient was taken to the ICU in stable condition. TRANSINT:[id number] Voice Confirmation ID: [id number] DOCUMENT ID: [id number] ESTELLE ORDOÑEZ MD at 1058 CC: DEWEY HART M.D. and RICA YARBROUGH [id number] DICTATION DATE: 03/27/211927 MACHINE FITTER: 03/27/212111 ADM IN [facility] [address] [id number]
--- NOTE | 2021-03-28 18:05 | NUR ---
0800-PT EXTUBATED AND PLACED ON 4L OYSTER UNLOADER-STRONG PRODUCTIVE COUGH ICE CHIPS GIVEN-HOB ELEVATED 60 DEGREES 1030-DR ORDOÑEZ AT BEDSIDE -STATUS REPORT GIVEN -ORDERS RECIEVED AND NOTED- 1100-R RADIAL CHARISSE D/C'D PER PROTOCOL-CLEVIPREX WEANED OFF PER PARAMETER-L NIBP IN PLACE-PT ALERT 1200-ORDERS REVIEWED-MEDIASTINAL CHEST TUBES PLACED TO WATER SEAL-NO VISUAL AIRLEAK AT THIS TEAM
--- NOTE | 2021-03-28 18:09 | NUR ---
1345-COMPLETE AM CARE DONE-ASSISTED TO SIDE OF BED-STANDING WITHOUT DIFFICULTY-SR ON MONITOR-R IJ SALINE LOCKED 1700-DINNER TRAY TAKEN
[2021-03-29] VITALS (24 sets, daily range): BP systolic 90–131; BP diastolic 33–67
[2021-03-29 06:45] LABS: HEMATOCRIT 30.8 % (36.0-48.0); HEMOGLOBIN 10.2 g/dL (12-16); MCH 28.5 pg (26.0-34.0); MCV 86.5 fL (80.0-100.0); MEAN PLATELET VOLUME 9.1 fL (7.4-10.4); RBC 3.56 10x6/uL (4.00-5.40); RDW 14.2 % (11.5-14.5); WBC 17.4 10x3/uL (4.8-10.8)
[2021-03-29 07:58] LABS: ALBUMIN 2.7 g/dL (3.4-5.0); BILIRUBIN - TOTAL 0.39 mg/dL (0.2-1.3); CALCIUM 8.3 mg/dL (8.5-10.1); PROTEIN - SERUM 5.5 g/dL (6.4-8.2)
[2021-03-29 08:02] LABS: CREATININE - SERUM 0.9 mg/dL (0.6-1.3)
--- NOTE | 2021-03-29 11:40 | NUR ---
1045-DR ORDOÑEZ AT BEDSIDE-PT ASSISTED TO BED-PREPPED FOR REMOVAL OF CHEST TUBES SAME DONE-TOLERATED WELL BY PT-DRG CHANGE DONE-PACER DISCONNECTED AND WIRES SECURED-PT REQUESTED TO REMAIN IN BED AT THIS TIME 1130=-GRAND SON CALLED UNIT-REQUESTED TO BRING PT WITH ALZHEIMERS IN TO VISIT-STRESSED TO SAME TO ASK PT(HERSELF) IF OK-CELL PHONE WITHIM PT REACH AND CHARGED-
--- NOTE | 2021-03-29 11:45 | NUR ---
1115-[place] CATH REMOVED ORDERED
--- NOTE | 2021-03-29 19:04 | NUR ---
0900-UP TO BEDSIDE VFCRV-PTYSXYLH-JOQU---ASSISTED WITH BREAKFEST TRAY 0930-PHYSICAL THERAPY AT BEDSIDE 1030-DR ORDOÑEZ AT BEDSIDE-MEDIASTINAL CHEST TUBES D/C'D-PACER WIRES SECURED 1215-ASSISTED TO BEDSIDE CHAIR FOR LUNCH TRAY 1330-PHYSICAL THERAPY AT BEDSIDE-AMBULATED TO NURSES STATION AND RETURNED TO ROOM-ASSISTED TO BED 1600-FAMILY AT BEDSIDE 1630-ASSISTED TO BEDSIDE CHAIR FOR DINNER TRAY 1700-ASSISTED BED
[2021-03-30] VITALS (24 sets, daily range): BP systolic 93–135; BP diastolic 45–69
--- NOTE | 2021-03-30 02:24 | NUR ---
ASSISTED PT TO BATHROOM, VOIDED 375 OF DARK YELLOW URINE, ABLE TO PROVIDE OWN PERICARE. ASSISTED BACK TO BED, TOLERATED WITHOUT DIFFICULTY. BED LOW, CALL LIGHT IN REACH, DENIES ANY OTHER NEEDS AT THIS TIME.
[2021-03-30 06:00] LABS: HEMATOCRIT 27.4 % (36.0-48.0); HEMOGLOBIN 9.2 g/dL (12-16); MCH 28.7 pg (26.0-34.0); MCHC 33.4 g/dL (31.0-37.0); MCV 86.1 fL (80.0-100.0); MEAN PLATELET VOLUME 9.3 fL (7.4-10.4); RBC 3.18 10x6/uL (4.00-5.40); RDW 14.1 % (11.5-14.5); WBC 16.9 10x3/uL (4.8-10.8)
[2021-03-30 06:47] LABS: ALBUMIN 2.4 g/dL (3.4-5.0); ANION GAP 8.9 mmol/L (8-16); BILIRUBIN - TOTAL 0.5 mg/dL (0.2-1.3); CALCIUM 7.8 mg/dL (8.5-10.1); CARBON DIOXIDE 28.4 mmol/L (21.0-32.0); CREATININE - SERUM 0.9 mg/dL (0.6-1.3); POTASSIUM - SERUM 4.3 mmol/L (3.5-5.1); PROTEIN - SERUM 4.8 g/dL (6.4-8.2)
--- NOTE | 2021-03-30 11:03 | NUR ---
Nutrition Reassessment/Follow-up: POD 3 CABG, Maze procedure. Extubated 03/28. Good appetite/PO intake. Denies N/V/C/D, chewing/swallowing difficulty. Diet: Diabetic PO intake: 75% x 3 yesterday Wt: 176.3# (03/30)IBW: 135# Labs noted: Glu 145, Ca 7.8, Alb 2.4 Meds noted: Protonix, Senokot, Colace, Glucophage Est needs: 8101-8948 kcal/day (25-30 kcal/kg IBW) 60-80 g protein/day (1-1.3 g/kg IBW) 6116-4361 mL fluid/day (1 mL/kcal) Nutrition Diagnosis: -Altered nutrition-related lab values R/T DM AEB elev Glu. Nutrition Goals: -PO intake >=75% avg of meals/snacks. -Meet est fluid needs without fluid overload. -Stable dry wt. -Glu at or near normal. Nutrition Intervention: -Encourage PO intake and honor food preferences within diet restrictions. -Monitor wt. -RD will follow up within 2-3 days.
[2021-03-31] VITALS (24 sets, daily range): BP systolic 101–135; BP diastolic 51–69
[2021-03-31 05:56] LABS: HEMATOCRIT 27.7 % (36.0-48.0); HEMOGLOBIN 9.1 g/dL (12-16); MCH 28.7 pg (26.0-34.0); MCHC 32.7 g/dL (31.0-37.0); MCV 87.7 fL (80.0-100.0); MEAN PLATELET VOLUME 10.3 fL (7.4-10.4); RBC 3.16 10x6/uL (4.00-5.40); RDW 14.1 % (11.5-14.5)
[2021-03-31 06:07] LABS: ALBUMIN 2.2 g/dL (3.4-5.0); ANION GAP 13.3 mmol/L (8-16); BILIRUBIN - TOTAL 0.52 mg/dL (0.2-1.3); CALCIUM 7.5 mg/dL (8.5-10.1); CARBON DIOXIDE 23.7 mmol/L (21.0-32.0); CREATININE - SERUM 0.9 mg/dL (0.6-1.3)
--- NOTE | 2021-03-31 06:30 | NUR ---
Shift summary: No complaints from patient, denies pain. Uses incentive spirometer, ambulated to bathroom with standby assist. Vitals WNL, see flowsheets for details.
--- NOTE | 2021-03-31 14:44 | NUR ---
CHAUNCEY AND CONSTANZA DRAIN DCD BY DR ORDOÑEZ
--- NOTE | 2021-03-31 15:15 | NUR ---
1345 DCD RT JUGULAR CENTRAL LINE PER PROTOCOL ORDER PER DR ORDOÑEZ
[2021-04-01] VITALS (20 sets, daily range): BP systolic 93–134; BP diastolic 45–70
[2021-04-01 04:45] LABS: BASOPHILS 0.8 % (0-2); EOSINOPHILS 3.1 % (0-7); HEMATOCRIT 27.7 % (36.0-48.0); HEMOGLOBIN 9.1 g/dL (12-16); LYMPHOCYTES 16.2 % (15-50); MCH 28.1 pg (26.0-34.0); MEAN PLATELET VOLUME 8.7 fL (7.4-10.4); MONOCYTES 12.4 % (2-11); NEUTROPHILS 67.5 % (40-80); RBC 3.25 10x6/uL (4.00-5.40); RDW 13.6 % (11.5-14.5)
[2021-04-01 04:56] LABS: MCV 85.2 fL (80.0-100.0); PLATELET COUNT 238 10x3/uL (130-400); WBC 11.8 10x3/uL (4.8-10.8)
[2021-04-01 05:06] LABS: ALBUMIN 2.2 g/dL (3.4-5.0); ANION GAP 10.2 mmol/L (8-16); BILIRUBIN - TOTAL 0.46 mg/dL (0.2-1.3); CALCIUM 7.9 mg/dL (8.5-10.1); CREATININE - SERUM 0.8 mg/dL (0.6-1.3); POTASSIUM - SERUM 4.2 mmol/L (3.5-5.1); PROTEIN - SERUM 5.3 g/dL (6.4-8.2)
--- NOTE | 2021-04-01 10:29 | NUR ---
PT OOB THIS AM FOR BREAKFAST.
--- NOTE | 2021-04-01 11:13 | NUR ---
Nutrition Follow-up: POD 5 CABG, Maze procedure. Good/fair PO intake. Diet: Diabetic Wt: 171# (04/01); 171.9# (03/28) Last BM: 03/31 per chart Labs noted: Glu 128, Ca 7.9, Alb 2.2 Meds noted: Protonix, Glucophage, Senokot, Colace -Encourage PO intake and honor food preferences within diet restrictions. -Monitor wt. -RD will follow up within 2-5 days.
--- NOTE | 2021-04-01 19:05 | NUR ---
REPORT AND PT RECIEVED AT BEDSIDE, LAYING IN BED ON BACK TALKING TO FAMILY ON PHONE. VITALS WNL, NO COMPLAINTS AT THIS TIME. PERSONAL ITEMS AND CALL LIGHT IN REACH. BED IN LOWEST POSITION SIDE RAIL UP X2. WILL CONTINUE TO MONITOR
[2021-04-02 03:00] VITALS: BP 100/49
[2021-04-02 05:04] LABS: HEMOGLOBIN 9.2 g/dL (12-16); MCH 28.8 pg (26.0-34.0); MCV 84.7 fL (80.0-100.0); MEAN PLATELET VOLUME 8.3 fL (7.4-10.4); RBC 3.18 10x6/uL (4.00-5.40); RDW 13.4 % (11.5-14.5)
[2021-04-02 05:29] LABS: ALBUMIN 2.1 g/dL (3.4-5.0); ANION GAP 12.2 mmol/L (8-16); BILIRUBIN - TOTAL 0.45 mg/dL (0.2-1.3); CALCIUM 7.8 mg/dL (8.5-10.1); CARBON DIOXIDE 25.8 mmol/L (21.0-32.0); CREATININE - SERUM 0.8 mg/dL (0.6-1.3)
[2021-04-02 12:00] VITALS: BP 116/65
--- NOTE | 2021-04-02 13:11 | NUR ---
UP AMBULATING WITH FLY TIER ASSIST.
[2021-04-02 14:00] VITALS: BP 116/83
--- NOTE | 2021-04-02 17:07 | NUR ---
AMBULATES IN HALLWAY ADLIB. GAIT STEADY.
[2021-04-02] MEDS ORDERED: LOPRESSOR25 MG PO (17:27)
[2021-04-02] MEDS ORDERED: LOW DOSE ASPIRI81 M1 PO (17:27)
[2021-04-02] MEDS ORDERED: COLACE100 MG PO (17:28)
[2021-04-02 23:30] VITALS: BP 108/61
--- NOTE | 2021-04-03 04:29 | NUR ---
NO C/O OR CONCERNS DURING THE NIGHT. PT STATES SHE IS READY TO GO HOME
[2021-04-03 05:26] LABS: HEMATOCRIT 27.4 % (36.0-48.0); HEMOGLOBIN 9.1 g/dL (12-16); MCH 28.3 pg (26.0-34.0); MCHC 33.1 g/dL (31.0-37.0); MCV 85.6 fL (80.0-100.0); MEAN PLATELET VOLUME 8.3 fL (7.4-10.4); RBC 3.2 10x6/uL (4.00-5.40); RDW 13.8 % (11.5-14.5); WBC 11.1 10x3/uL (4.8-10.8)
[2021-04-03 05:39] VITALS: BP 101/52
[2021-04-03 06:16] LABS: ALBUMIN 2.2 g/dL (3.4-5.0); ANION GAP 11.6 mmol/L (8-16); BILIRUBIN - TOTAL 0.41 mg/dL (0.2-1.3); CALCIUM 7.7 mg/dL (8.5-10.1); CARBON DIOXIDE 25.4 mmol/L (21.0-32.0); CREATININE - SERUM 0.8 mg/dL (0.6-1.3); PROTEIN - SERUM 5.2 g/dL (6.4-8.2)
[2021-04-03 07:42] VITALS: BP 112/50
--- NOTE | 2021-04-03 09:58 | NUR ---
Nutrition Follow-up: POD 7 CABG, Maze procedure. Overall poor PO intake reported. Ate 50% of breakfast this AM. Diet: Diabetic PO intake: 43% avg x 5 meals Wt: 169# (04/02) Labs noted: Glu 124, Ca 7.7, Alb 2.2 Meds noted: Protonix, Glucophage, Senokot, Colace -Encourage PO intake and honor food preferences within diet restrictions. -+Glucerna with meals. -Monitor wt. -RD will follow up within 3-4 days.
--- NOTE | 2021-04-03 10:00 | NUR ---
AMBULATES WITH PT ASSIST.
[2021-04-03 11:02] VITALS: BP 107/62
[2021-04-03] MEDS ORDERED: COMBIVENT RESPIM4 GM INH (11:05)
[2021-04-03] MEDS ORDERED: PERCOCET 5-3251 TAB PO (11:06)
--- NOTE | 2021-04-03 12:28 | NUR ---
IV AND TELEMETRY DCD. DC PLANS GIVEN. UNDERSTANDING VOICED. ESCORTED TO CAR BY W/C.
--- NOTE | 2021-04-05 18:03 | MORECARE ---
CASE MANAGEMENT DISCHARGE SUMMARY PATIENT: NANCY COLON UNIT: [id number] ADM DATE: 03/27/21 AGE: 70 : 48 SEX: F [facility] AUTHOR: ALYSHA,DOC PHYSICIAN: REFERRING PHYSICIAN: ESTELLE ORDOÑEZ MD DATE OF SERVICE: 04/05/21 Case Management Discharge Planning Summary DCP REVIEW SUMMARY ANTICIPATED D/C DATE: EXPECTED LOS : CASE STATUS: DCP Complete INITIAL REVIEW: 03/27/2021 INITIAL REVIEWER: Leticia Truong FINAL DISCHARGE DISPOSITION: : FINAL REVIEWER: FINAL REVIEW DATE: DCP Focus Questions & Answers QUESTION: ANSWER : PATIENT: NANCY COLON ENCOUNTER: [id number] MEDICAL RECORD#: [id number] ADMISSION DATE: 03/27/2021 DISCHARGE DATE: 04/03/2021 ATTENDING MD: ESTELLE DURANT : AGE: 70 MARITAL STATUS: M DC PLAN ID: [id number] FACILITY: [facility] PRINTED ON: 04/05/21 18:03 CT All edits/amendments must be made on the electronic document DICTATION DATE: 04/05/211802 HOT TOP LINER: DM 04/05/211802 RPT#: [id number] DC DATE:04/03/21 STATUS: DIS IN [facility] [address] [place] [address] END OF REPORT
--- NOTE | 2021-04-05 20:07 | MORECARE ---
CASE MANAGEMENT DISCHARGE SUMMARY PATIENT: NANCY COLON UNIT: [id number] ADM DATE: 03/27/21 AGE: 70 : 48 SEX: F ROOM/BED: D.8354 AUTHOR: ALYSHADOC PHYSICIAN: REFERRING PHYSICIAN: ESTELLE ORDOÑEZ MD DATE OF SERVICE: 04/05/21 Case Management Discharge Planning Summary DCP REVIEW SUMMARY ANTICIPATED D/C DATE: EXPECTED LOS : CASE STATUS: DCP Complete INITIAL REVIEW: 03/27/2021 INITIAL REVIEWER: Leticia Truong FINAL DISCHARGE DISPOSITION: 01 : Home or Self Care (Routine Discharge) FINAL REVIEWER: Jessica Harrington FINAL REVIEW DATE: 04/05/2021 DCP Focus Questions & Answers DCP Screen QUESTION: ANSWER High Risk Factors: : Hosp related to CHF, COPD, DM, End Stage Ds, CVA, CA DCP Evaluation QUESTION: ANSWER Patient gives permission to discuss discharge plans with: (name, relationship and number) : cameron Colon [phone] Patient's ability to cope with chronic illness : d. No chronic illness Physical Status: : Independent with ADL's Baseline cognitive status: : *Oriented to person, place, situation, time and present Would patient like to participate in any Care Coordination programs (if applicable): : Not applicable Mental health screen: : No mental health history DCP Re-evaluation QUESTION: ANSWER Would patient like to participate in any Care Coordination programs (if applicable): : Not applicable PATIENT: NANCY COLON ENCOUNTER: [id number] MEDICAL RECORD#: [id number] ADMISSION DATE: 03/27/2021 DISCHARGE DATE: 04/03/2021 ATTENDING MD: ESTELLE DURANT : AGE: 70 MARITAL STATUS: M DC PLAN ID: [id number] FACILITY: [facility] PRINTED ON: 04/05/21 20:07 CT All edits/amendments must be made on the electronic document DICTATION DATE: 04/05/212006 CABLE ASSEMBLER: MUNA 04/05/212006 RPT#: [id number] DC DATE:04/03/21 STATUS: DIS IN [facility] [address] [place] [address] END OF REPORT
--- NOTE | 2021-04-05 20:18 | MORECARE ---
CASE MANAGEMENT DISCHARGE SUMMARY PATIENT: NANCY COLON UNIT: [id number] ADM DATE: 03/27/21 AGE: 70 : 48 SEX: F ROOM/BED: D.3695 AUTHOR: ALYSHA,DOC PHYSICIAN: REFERRING PHYSICIAN: ESTELLE ORDOÑEZ MD DATE OF SERVICE: 04/05/21 Case Management Discharge Planning Summary COMMENTS ENTERED DATE: 04/05/21 20:08 CT COMMENT TYPE: Discharge Planning REVIEWER: Jessica Harrington late entry 04/03/21 CM spoke with patient to complete initial dc planning assessment. CM educated patient on the CM role and verbal consent given by patient to complete assessment. Patient lives at home with family. Patient is independent. At discharge patient plans to return home and feels this is a safe discharge. CM discussed availability of home health, rehab services, and medical equipment. Patient will have family to transport home. Patient denied known discharge needs at this time. CM will continue to follow and will assist as needed with dc plans/needs. D/C IMM signed DCP REVIEW SUMMARY ANTICIPATED D/C DATE: EXPECTED LOS : CASE STATUS: DCP Complete INITIAL REVIEW: 03/27/2021 INITIAL REVIEWER: Leticia Truong FINAL DISCHARGE DISPOSITION: 01 : Home or Self Care (Routine Discharge) FINAL REVIEWER: Jessica Harrington FINAL REVIEW DATE: 04/05/2021 DCP Focus Questions & Answers DCP Screen QUESTION: ANSWER High Risk Factors: : Hosp related to CHF, COPD, DM, End Stage Ds, CVA, CA DCP Evaluation QUESTION: ANSWER Patient's current cognitive status: : *Oriented to person, place, situation, time and present Family / Caregiver's ability to cope with chronic illness: : b. Minimal (occasionally not dependable to meet pt's. needs, can meet pt's. basic ADL's) Patient and/or caregiver agree upon recommended discharge plan? : Yes Patient gives permission to discuss discharge plans with: (name, relationship and number) : cameron Colon [phone] Patient's ability to cope with chronic illness : d. No chronic illness Family / Caregiver's ability to cope with chronic illness: : b. Minimal (occasionally not dependable to meet pt's. needs, can meet pt's. basic ADL's) Functional screen assessment: : Unable to manage ADLs without immediate ongoing assistance Does the patient have the ability to pay for or attain post discharge needs / services? : Yes Physical Status: : Independent with ADL's Living Arrangements: : Home with Extended Family Is there a likelihood that the patient will require additional services to return to the preadmission environment? : Yes Equipment needed for post hospitalization: : None Patient with capacity for self-care or can be cared for in same environment as prior to hospitalization? : Yes Results of this evaluation have been discussed with: : Patient Baseline cognitive status: : *Oriented to person, place, situation, time and present Physical environment modification needed / anticipated for discharge: : N/A Medication Management: : Patient states they do have transportation to filler picker medications Pharmacy name(s): : [facility] Planned post hospital services available for patient? : Yes Does Patient have transportation to get home and to follow-up medical appointments when discharged from the hospital? : Yes Planned post hospital services covered by insurance plan? : Yes Would patient like to participate in any Care Coordination programs (if applicable): : Not applicable Does the patient have electricity at home? : Yes Does the patient have running water in their house? : Yes Equipment in use: : Bedside Commode Equipment in use: : Nebulizer Equipment in use: : Shower Chair Equipment in use: : Walker - Rolling Mental health screen: : No mental health history Psychosocial status: : Independent adult (65+) Abuse/Neglect: : None DCP Re-evaluation QUESTION: ANSWER Would patient like to participate in any Care Coordination programs (if applicable): : Not applicable PATIENT: NANCY COLON ENCOUNTER: [id number] MEDICAL RECORD#: [id number] ADMISSION DATE: 03/27/2021 DISCHARGE DATE: 04/03/2021 ATTENDING MD: ESTELLE DURANT : AGE: 70 MARITAL STATUS: M DC PLAN ID: [id number] FACILITY: [facility] PRINTED ON: 04/05/21 20:18 CT All edits/amendments must be made on the electronic document DICTATION DATE: 04/05/212017 ROTARY DRILL RIG OPERATOR: MUNA 04/05/212017 RPT#: [id number] DC DATE:04/03/21 STATUS: DIS IN [facility] [id number] [place] [address] END OF REPORT
== END 2021-04-03 12:29 | disposition home or self-care (01) | DRG 236 ==
LOC: D.SDCHOLD 03-27 05:15 → D.M2 03-27 05:15 → D.CVICU 03-27 05:15 → D.CLR 03-27 07:30 → D.SDCHOLD 03-27 07:30 → D.CVICU 03-27 13:56 → D.M2 04-02 08:36
PROVIDERS: ADMIT Thoracic Surgery (Cardiothoracic Vascular Surgery); ATTEND Thoracic Surgery (Cardiothoracic Vascular Surgery)
PROC: 025T0ZZ Destruction of Left Pulmonary Vein, Open Approach (ICD-10-PCS; 2021-03-27)
PROC: 0BNP0ZZ Release Left Pleura, Open Approach (ICD-10-PCS; 2021-03-27)
PROC: 02L70ZK Occlusion of Left Atrial Appendage, Open Approach (ICD-10-PCS; 2021-03-27)
PROC: 02100A9 Bypass Coronary Artery, One Artery from Left Internal Mammary with Autologous Arterial Tissue, Open Approach (ICD-10-PCS; principal; 2021-03-27 07:30)
PROC: 021209W Bypass Coronary Artery, Three Arteries from Aorta with Autologous Venous Tissue, Open Approach (ICD-10-PCS; 2021-03-27 07:30)
DX: I25.10 Atherosclerotic heart disease of native coronary artery without angina pectoris (principal); J94.8 Other specified pleural conditions; J98.11 Atelectasis; I10 Essential (primary) hypertension; E78.5 Hyperlipidemia, unspecified; E11.9 Type 2 diabetes mellitus without complications; Z79.84 Long term (current) use of oral hypoglycemic drugs; R06.89 Other abnormalities of breathing; Z87.891 Personal history of nicotine dependence; J44.9 Chronic obstructive pulmonary disease, unspecified; R53.81 Other malaise; D64.9 Anemia, unspecified